=== PATIENT | female | born 1940 | race Caucasian/White ===

== ENCOUNTER 2017-12-08 08:55 | Outpatient (CLI) | payer MEDICARE, BC, OTHER | END 2017-12-08 08:56 | disposition home or self-care (01) | LOC: BICMAMMO 08:55 | PROVIDERS: ATTEND Obstetrics & Gynecology | DX: Z12.31 Encounter for screening mammogram for malignant neoplasm of breast (principal) | CPT/HCPCS: 77063; 77067 ==

== ENCOUNTER 2018-12-10 10:03 | Outpatient (CLI) | payer MEDICARE, BC, OTHER ==
--- NOTE | 2018-12-10 10:36 | MMO ---
Bilateral MAMMO Bilat Screen [facility]. CLINICAL HISTORY: Patient is 78 years old and is seen for screening. The patient has no family history of breast cancer. The patient has no personal history of cancer. The patient has a history of left Excisional Biopsy in 1987 - benign. VIEWS: The views performed were: bilateral craniocaudal with tomosynthesis and bilateral mediolateral oblique with tomosynthesis. FILMS COMPARED: The present examination has been compared to prior imaging studies performed at [facility] on 11/11/2013, 11/13/2014 and 11/25/2015, and at [facility] on 12/06/2016 and 12/08/2017. MAMMOGRAM FINDINGS: There are scattered fibroglandular densities. There are benign appearing calcifications seen in both breasts. There are also vascular calcifications. There are no suspicious masses, suspicious calcifications, or new areas of architectural distortion. IMPRESSION: THERE IS NO MAMMOGRAPHIC EVIDENCE OF MALIGNANCY. A ROUTINE FOLLOW-UP MAMMOGRAM IN 1 YEAR IS RECOMMENDED. THE RESULTS OF THIS EXAM WERE SENT TO THE PATIENT. ACR BI-RADS Category 2 - Benign finding MAMMOGRAPHY NOTE: 1. A negative mammogram report should not delay a biopsy if a dominant of clinically suspicious mass is present. 2. Approximately 10% to 15% of breast cancers are not detected by mammography. 3. Adenosis and dense breasts may obscure an underlying neoplasm.
== END 2018-12-10 10:04 | disposition home or self-care (01) ==
LOC: BICMAMMO 10:03
PROVIDERS: ATTEND Obstetrics & Gynecology
DX: Z12.31 Encounter for screening mammogram for malignant neoplasm of breast (principal)
CPT/HCPCS: 77063; 77067

== ENCOUNTER 2019-12-31 09:20 | Outpatient (CLI) | payer MEDICARE, BC, OTHER ==
--- NOTE | 2019-12-31 10:09 | MMO ---
Bilateral MAMMO Bilat Screen [facility]. CLINICAL HISTORY: Patient is 79 years old and is seen for screening. The patient has no family history of breast cancer. The patient has no personal history of cancer. The patient has a history of left Excisional Biopsy in 1987 - benign. VIEWS: The views performed were: bilateral craniocaudal with tomosynthesis and bilateral mediolateral oblique with tomosynthesis. FILMS COMPARED: The present examination has been compared to prior imaging studies performed at [facility] on 11/25/2015, and at [facility] on 12/06/2016, 12/08/2017 and 12/10/2018. This study has been interpreted with the assistance of computer-aided detection. MAMMOGRAM FINDINGS: There are scattered fibroglandular densities. Benign calcifications are noted bilaterally. There are no suspicious masses, suspicious calcifications, or new areas of architectural distortion. IMPRESSION: THERE IS NO MAMMOGRAPHIC EVIDENCE OF MALIGNANCY. A ROUTINE FOLLOW-UP MAMMOGRAM IN 1 YEAR IS RECOMMENDED. THE RESULTS OF THIS EXAM WERE SENT TO THE PATIENT. ACR BI-RADS Category 2 - Benign finding MAMMOGRAPHY NOTE: 1. A negative mammogram report should not delay a biopsy if a dominant of clinically suspicious mass is present. 2. Approximately 10% to 15% of breast cancers are not detected by mammography. 3. Adenosis and dense breasts may obscure an underlying neoplasm. Reported by: SAUL MILLER MD Electonically Signed: [id number]
== END 2019-12-31 09:21 | disposition home or self-care (01) ==
LOC: BICMAMMO 09:20
PROVIDERS: ATTEND Internal Medicine
DX: Z12.31 Encounter for screening mammogram for malignant neoplasm of breast (principal); Z91.89 Other specified personal risk factors, not elsewhere classified
CPT/HCPCS: 77063; 77067

== ENCOUNTER 2021-01-18 09:55 | Outpatient (CLI) | payer MEDICARE, BC | END 2021-01-18 09:56 | disposition home or self-care (01) | LOC: BICMAMMO 09:55 | PROVIDERS: ATTEND Internal Medicine | DX: Z12.31 Encounter for screening mammogram for malignant neoplasm of breast (principal); Z91.89 Other specified personal risk factors, not elsewhere classified | CPT/HCPCS: 77063; 77067 ==

== ENCOUNTER 2022-02-14 10:27 | Outpatient (CLI) | payer MEDICARE, BC | END 2022-02-14 10:28 | disposition home or self-care (01) | LOC: BICMAMMO 10:27 | PROVIDERS: ATTEND Internal Medicine | DX: Z12.31 Encounter for screening mammogram for malignant neoplasm of breast (principal); Z91.89 Other specified personal risk factors, not elsewhere classified | CPT/HCPCS: 77063; 77067 ==

== ENCOUNTER 2024-04-27 19:38 | Inpatient (IN) | payer MEDICARE, BC ==
[2024-04-27 21:44] VITALS: BMI 21.2
[2024-04-27] MEDS ORDERED: Acetaminophen 325 MG TAB PO PRN (21:45)
[2024-04-27] MEDS ORDERED: Ondansetron PF 4 MG/2 ML Vial IVP PRN ×2 (21:45→22:05)
[2024-04-27] MEDS ORDERED: Ondansetron ODT 4 MG TAB SL PRN (21:45)
[2024-04-27] MEDS ORDERED: Acetaminophen 650 MG Suppository PR PRN (22:05)
[2024-04-27] MEDS ORDERED: Ondansetron ODT 4 MG TAB PO PRN (22:05)
[2024-04-27 22:32] LABS: #Basophils Less than 0.03 10x3/uL (0.0-0.2); #Eosinphils Less than 0.03 10x3/uL (0.0-0.7); %Basophils 0.1 % (0.0-1.0); %Lymphocytes 5.8 % (21.0-51.0); %Monocytes 0.5 % (0.0-10.0); %Neutrophils 92.9 % (42.0-75.0); Hematocrit 22.4 % (36.0-47.0); Hemoglobin 7.2 g/dL (12.0-16.0); Mean Corpuscular HGB CONC 32.1 g/dL (32.0-36.0); Mean Corpuscular Hemoglobin 28.7 pg (27.0-31.0); Mean Corpuscular Volume 89.2 fL (78.0-98.0); Mean Platelet Volume 8.4 fL (7.4-10.4); Platelet Count 539 10x3/uL (130-400); RBC Distribution Width 14.5 % (11.5-14.5); Red Blood Cell (RBC) Count 2.51 mill/uL (4.20-5.40)
[2024-04-27 22:39] LABS: Chloride 96 mmol/L (98-107); Potassium 3.9 mmol/L (3.5-5.1); Sodium 131 mmol/L (136-145)
[2024-04-27 22:47] LABS: ALT (SGPT) 18 U/L (8-55); AST (SGOT) 20 U/L (5-34); Albumin 2.7 g/dL (3.4-4.8); Alkaline Phosphatase 73 U/L (40-110); Anion Gap 15 mmol/L (10-20); BUN (Urea Nitrogen) 8 mg/dL (9.8-20.1); Bilirubin, Total 0.2 mg/dL (0.2-1.2); Calc. Creatinine Clearance 74 mL/min (70-130); Calcium 8.9 mg/dL (7.8-10.44); Carbon Dioxide 26 mmol/L (23-31); Estimated GFR 93; Globulin 3.8 g/dL (2.4-3.5); Glucose 162 mg/dL (83-110); Protein, Total 6.5 g/dL (5.8-8.1)
[2024-04-27] MEDS: Acetaminophen 325 MG TAB PO SCH (23:01)
[2024-04-28] MEDS: Ipratropium/Albuterol 3 ML NEB NEB PRN (07:56)
[2024-04-28] MEDS ORDERED: Famotidine/PF 20 mg/2ml Vial SLOW IVP SCH (09:00)
[2024-04-28] MEDS: Doxycycline 100 MG CAP PO SCH (09:24)
[2024-04-28] MEDS: Famotidine 20 MG TAB PO SCH (09:24)
[2024-04-28] MEDS: cefTRIAXone\\ROCEPHIN 1 GM in Sodium Chloride 0.9% 100 ML IVPB SCH (09:25)
[2024-04-28] MEDS ORDERED: HYDROcodone/Acetaminophen 7.5/325 mg Tablet PO PRN ×2 (09:29)
[2024-04-28] MEDS: Acetaminophen 500 MG TAB PO PRN (11:10)
[2024-04-28 17:30] LABS: INR-International Normal Ratio 1.3; Prothrombin Time 16.5 sec (12.0-14.7)
[2024-04-28 17:31] LABS: PTT 30.3 sec (22.9-36.1)
[2024-04-29] MEDS ORDERED: Midazolam HCl 2 mg/2 ml Vial ONE (10:09)
[2024-04-29] MEDS ORDERED: fentaNYL 50 mcg/mL 1 mL Vial ONE (10:09)
[2024-04-29] MEDS ORDERED: Lidocaine 1% w/Epinephrine 1:100K 20 ML VIAL ONE (10:10)
[2024-04-29] MEDS ORDERED: Sodium Bicarbonate 2.5 MEQ/5 ML SDV ONE (10:10)
[2024-04-29] MEDS: Losartan 25 MG TAB PO SCH ×2 (12:34→20:16)
[2024-04-29 15:16] LABS: #Basophils 0.05 10x3/uL (0.0-0.2); %Basophils 0.4 % (0.0-1.0); %Eosinophils 0.7 % (0.0-10.0); %Lymphocytes 8.6 % (21.0-51.0); %Monocytes 5.8 % (0.0-10.0); %Neutrophils 83.8 % (42.0-75.0); Hemoglobin 6.9 g/dL (12.0-16.0); Mean Corpuscular HGB CONC 32.9 g/dL (32.0-36.0); Mean Corpuscular Hemoglobin 29.4 pg (27.0-31.0); Mean Corpuscular Volume 89.4 fL (78.0-98.0); Mean Platelet Volume 8.6 fL (7.4-10.4); Platelet Count 570 10x3/uL (130-400); RBC Distribution Width 14.4 % (11.5-14.5); Red Blood Cell (RBC) Count 2.35 mill/uL (4.20-5.40)
[2024-04-29] MEDS ORDERED: Iopamidol-370 76% 500 ML MDV (1 ML CHARGE) ONE (15:20)
[2024-04-29 15:30] LABS: Iron 11 ug/dL (50-170); Iron Binding Capacity, Total 285 mcg/dL (265-497)
[2024-04-29] MEDS ORDERED: Magnevist 469MG/ML 20 ML VIAL ONE (15:40)
[2024-04-29 15:59] LABS: Ferritin 51.03 ng/mL (10-291)
[2024-04-29] MEDS: Hydrochlorothiazide 25 MG TAB PO SCH (20:15)
[2024-04-29] MEDS: Ipratropium/Albuterol 3 ML NEB NEB PRN (20:19)
[2024-04-29] MEDS: Latanoprost 0.005% Ophth Soln 2.5 ml Bottle EA EYE SCH (20:46)
[2024-04-29] MEDS ORDERED: traMADol HCl 50 MG TAB PO PRN (21:51)
[2024-04-29] MEDS: Morphine 2 MG/ML VIAL SLOW IVP SCH (22:19)
[2024-04-30 06:55] LABS: #Basophils 0.05 10x3/uL (0.0-0.2); %Basophils 0.4 % (0.0-1.0); %Eosinophils 1.2 % (0.0-10.0); %Lymphocytes 10.6 % (21.0-51.0); %Monocytes 7.3 % (0.0-10.0); %Neutrophils 79.8 % (42.0-75.0); Hematocrit 20.7 % (36.0-47.0); Hemoglobin 6.7 g/dL (12.0-16.0); Mean Corpuscular HGB CONC 32.4 g/dL (32.0-36.0); Mean Corpuscular Hemoglobin 28.3 pg (27.0-31.0); Mean Corpuscular Volume 87.3 fL (78.0-98.0); Mean Platelet Volume 8.3 fL (7.4-10.4); Platelet Count 512 10x3/uL (130-400); RBC Distribution Width 14.3 % (11.5-14.5); Red Blood Cell (RBC) Count 2.37 mill/uL (4.20-5.40)
[2024-04-30 07:18] LABS: ALT (SGPT) 15 U/L (8-55); AST (SGOT) 21 U/L (5-34); Albumin 2.4 g/dL (3.4-4.8); Alkaline Phosphatase 64 U/L (40-110); Anion Gap 12 mmol/L (10-20); BUN (Urea Nitrogen) 8 mg/dL (9.8-20.1); Bilirubin, Total 0.3 mg/dL (0.2-1.2); Calc. Creatinine Clearance 80 mL/min (70-130); Calcium 8.2 mg/dL (7.8-10.44); Carbon Dioxide 24 mmol/L (23-31); Chloride 94 mmol/L (98-107); Estimated GFR 95; Globulin 2.9 g/dL (2.4-3.5); Glucose 100 mg/dL (83-110); Potassium 3.4 mmol/L (3.5-5.1); Protein, Total 5.3 g/dL (5.8-8.1); Sodium 127 mmol/L (136-145)
[2024-04-30] MEDS: Enoxaparin 40 MG (0.4 mL) SYRINGE SC SCH (08:14)
[2024-04-30] MEDS: Atorvastatin Calcium 10 MG TAB PO SCH (08:14)
[2024-04-30] MEDS ORDERED: Losartan 25 MG TAB PO SCH (09:00)
[2024-04-30] MEDS: HYDROcodone/Acetaminophen 5/325 mg Tablet PO PRN (16:20)
[2024-04-30] MEDS: Bisacodyl 5 MG TAB PO SCH (16:20)
[2024-04-30] MEDS: Sodium Ferric Gluconate 250 MG in Sodium Chloride 0.9% 250 ML 250 ML IVPB SCH (17:48)
[2024-04-30] MEDS: Senokot S 8.6-50 MG TAB PO SCH (20:18)
[2024-05-01 05:54] LABS: #Basophils 0.08 10x3/uL (0.0-0.2); %Basophils 0.4 % (0.0-1.0); %Eosinophils 1.7 % (0.0-10.0); %Lymphocytes 8.8 % (21.0-51.0); Hematocrit 26.7 % (36.0-47.0); Hemoglobin 8.8 g/dL (12.0-16.0); Mean Corpuscular Hemoglobin 28.5 pg (27.0-31.0); Mean Corpuscular Volume 86.4 fL (78.0-98.0); Mean Platelet Volume 8.5 fL (7.4-10.4); Platelet Count 579 10x3/uL (130-400); RBC Distribution Width 14.8 % (11.5-14.5); Red Blood Cell (RBC) Count 3.09 mill/uL (4.20-5.40)
[2024-05-01 06:11] LABS: ALT (SGPT) 17 U/L (8-55); AST (SGOT) 20 U/L (5-34); Albumin 2.5 g/dL (3.4-4.8); Alkaline Phosphatase 69 U/L (40-110); Anion Gap 11 mmol/L (10-20); BUN (Urea Nitrogen) 7 mg/dL (9.8-20.1); Bilirubin, Total 0.5 mg/dL (0.2-1.2); Calc. Creatinine Clearance 82 mL/min (70-130); Calcium 8.3 mg/dL (7.8-10.44); Carbon Dioxide 26 mmol/L (23-31); Chloride 92 mmol/L (98-107); Estimated GFR 95; Globulin 3.3 g/dL (2.4-3.5); Glucose 105 mg/dL (83-110); Potassium 3.6 mmol/L (3.5-5.1); Protein, Total 5.8 g/dL (5.8-8.1); Sodium 125 mmol/L (136-145)
[2024-05-01] MEDS ORDERED: Hydrochlorothiazide 25 MG TAB PO SCH (09:00)
[2024-05-01] MEDS: Ferrous Sulfate 325 MG TAB PO SCH (09:12)
[2024-05-01] MEDS: Pantoprazole DR 40 MG TAB PO SCH (09:12)
[2024-05-01] MEDS: Polyethylene Glycol 3350 17 GM Packet PO SCH (09:13)
[2024-05-01] MEDS ORDERED: Bisacodyl 10 MG SUPP PR PRN (10:22)
[2024-05-01] MEDS: Ipratropium/Albuterol 3 ML NEB NEB SCH (11:11)
[2024-05-01] MEDS: Morphine 2 MG/ML VIAL SLOW IVP PRN (11:20)
[2024-05-01] MEDS: Lactulose 20 GM (30 mL) UDCUP PO SCH (11:22)
[2024-05-01] MEDS: Bisacodyl 5 MG TAB PO SCH (16:03)
[2024-05-02 05:07] LABS: #Basophils 0.07 10x3/uL (0.0-0.2); %Basophils 0.4 % (0.0-1.0); %Eosinophils 1.9 % (0.0-10.0); %Lymphocytes 9.1 % (21.0-51.0); %Monocytes 8.5 % (0.0-10.0); %Neutrophils 79.2 % (42.0-75.0); Hemoglobin 8.2 g/dL (12.0-16.0); Mean Corpuscular HGB CONC 32.8 g/dL (32.0-36.0); Mean Corpuscular Hemoglobin 28.4 pg (27.0-31.0); Mean Corpuscular Volume 86.5 fL (78.0-98.0); Mean Platelet Volume 8.4 fL (7.4-10.4); Platelet Count 510 10x3/uL (130-400); RBC Distribution Width 14.8 % (11.5-14.5); Red Blood Cell (RBC) Count 2.89 mill/uL (4.20-5.40)
[2024-05-02 05:21] LABS: Anion Gap 9 mmol/L (10-20); BUN (Urea Nitrogen) 6 mg/dL (9.8-20.1); Calc. Creatinine Clearance 99 mL/min (70-130); Calcium 8.1 mg/dL (7.8-10.44); Carbon Dioxide 28 mmol/L (23-31); Chloride 92 mmol/L (98-107); Estimated GFR 97; Glucose 101 mg/dL (83-110); Potassium 3.8 mmol/L (3.5-5.1); Sodium 125 mmol/L (136-145)
[2024-05-02 09:28] VITALS: TEMP 97.9
[2024-05-02 12:43] VITALS: BP 118/65
== END 2024-05-02 12:57 | DRG 180 ==
LOC: 2NO 21:23 → MSONC 04-28 14:27
PROVIDERS: ADMIT Internal Medicine; ATTEND Internal Medicine
PROC: 0BBC3ZX Excision of Right Upper Lung Lobe, Percutaneous Approach, Diagnostic (ICD-10-PCS; principal; 2024-04-27)
PROC: 30233N1 Transfusion of Nonautologous Red Blood Cells into Peripheral Vein, Percutaneous Approach (ICD-10-PCS; 2024-04-30)
DX: C34.11 Malignant neoplasm of upper lobe, right bronchus or lung (principal); I26.93 Single subsegmental thrombotic pulmonary embolism without acute cor pulmonale; J18.9 Pneumonia, unspecified organism; J96.01 Acute respiratory failure with hypoxia; M84.48XA Pathological fracture, other site, initial encounter for fracture; C78.7 Secondary malignant neoplasm of liver and intrahepatic bile duct; C78.6 Secondary malignant neoplasm of retroperitoneum and peritoneum; E22.2 Syndrome of inappropriate secretion of antidiuretic hormone; D63.0 Anemia in neoplastic disease; K59.00 Constipation, unspecified; J44.9 Chronic obstructive pulmonary disease, unspecified; I10 Essential (primary) hypertension; E78.5 Hyperlipidemia, unspecified; R91.8 Other nonspecific abnormal finding of lung field; J43.9 Emphysema, unspecified; D50.9 Iron deficiency anemia, unspecified; Z88.5 Allergy status to narcotic agent; Z88.2 Allergy status to sulfonamides; Z91.040 Latex allergy status
CPT/HCPCS: 32408; 36415; 36430; 70553; 71045; 74177; 76376; 77012; 80048; 80053; 82274; 82607; 82728; 83540; 83550; 83935; 84300; 85025; 85046; 85610; 85730; 86850; 86900; 86901; 88305; 88333; 88334; 88341; 88342; 94640; 99152; 99153; A9579; J0696; J1650; J2250; J2272; J2916; J3010; J7050; J7620; P9016; Q9967

== ENCOUNTER 2024-05-06 13:34 | Inpatient (IN) | payer MEDICARE, BC ==
[2024-05-06 14:18] LABS: Bacteria/HPF None Seen HPF (None Seen); Bilirubin Negative (Negative); Blood, Urine Negative (Negative); CAUTI Indications for Culture Alt mental st,lethar; Clarity Clear (Clear); Glucose, Urine (Dipstick) Normal (Negative); Ketone, Urine Trace mg/dL (Negative); Leukocyte Negative Leu/uL (Negative); Nitrite Negative (Negative); Protein, Urine (Dipstick) 20 mg/dL (Neg-Trace); RBC/HPF 0-3 HPF (0-3); Specific Gravity, Urine 1.016 (1.002-1.036); Squamous Epithelial None Seen HPF (0-3); Urobilinogen Normal mg/dL (Less than 2); pH, Urine 6.5 (5.0-9.0)
[2024-05-06 14:19] LABS: Urine Culture Reflex No No
[2024-05-06 14:36] LABS: Amphetamine Not Detected (NotDetected); Barbiturates Screen Not Detected (NotDetected); Benzodiazepine Screen Not Detected (NotDetected); Cocaine Metabolite Screen Not Detected (NotDetected); Methadone Not Detected (NotDetected); Methamphetamine Not Detected (NotDetected); Opiate Screen Not Detected (NotDetected); Oxycodone Screen Not Detected (NotDetected); Phencyclidine (PCP) Not Detected (NotDetected); THC/Cannabinoid Screen Not Detected (NotDetected); Tricyclic Screen Not Detected (NotDetected)
[2024-05-06 14:39] LABS: #Basophils 0.05 10x3/uL (0.0-0.2); %Basophils 0.3 % (0.0-1.0); %Eosinophils 0.7 % (0.0-10.0); %Lymphocytes 6.8 % (21.0-51.0); %Monocytes 8.4 % (0.0-10.0); %Neutrophils 83.1 % (42.0-75.0); Hematocrit 28.1 % (36.0-47.0); Hemoglobin 9.9 g/dL (12.0-16.0); Mean Corpuscular HGB CONC 35.2 g/dL (32.0-36.0); Mean Corpuscular Hemoglobin 28.6 pg (27.0-31.0); Mean Corpuscular Volume 81.2 fL (78.0-98.0); Mean Platelet Volume 8.2 fL (7.4-10.4); Platelet Count 476 10x3/uL (130-400); Red Blood Cell (RBC) Count 3.46 mill/uL (4.20-5.40)
[2024-05-06 14:54] LABS: Acetaminophen Less than 10 mcg/mL (Less than 10); Alcohol Less than 10.0 mg/dL (Less than 10); Salicylate Less than 8.0 mg/dL (Less than 8.0)
[2024-05-06 14:57] LABS: Troponin I 0.024 ng/mL (< 0.028)
[2024-05-06 15:00] LABS: ALT (SGPT) 26 U/L (8-55); AST (SGOT) 29 U/L (5-34); Albumin 2.5 g/dL (3.4-4.8); Alkaline Phosphatase 78 U/L (40-110); Anion Gap 12 mmol/L (10-20); BUN (Urea Nitrogen) 11 mg/dL (9.8-20.1); Bilirubin, Total 0.5 mg/dL (0.2-1.2); Calc. Creatinine Clearance 0 mL/min (70-130); Calcium 8.4 mg/dL (7.8-10.44); Carbon Dioxide 29 mmol/L (23-31); Chloride 76 mmol/L (98-107); Estimated GFR 95; Globulin 3.1 g/dL (2.4-3.5); Glucose 102 mg/dL (83-110); Potassium 3.7 mmol/L (3.5-5.1); Protein, Total 5.6 g/dL (5.8-8.1); Sodium 113 mmol/L (136-145)
[2024-05-06] MEDS ORDERED: Ipratropium/Albuterol 3 ML NEB ONE (15:07)
[2024-05-06 15:09] LABS: Magnesium 1.7 mg/dL (1.6-2.6)
[2024-05-06] MEDS ORDERED: Ipratropium/Albuterol 3 ML NEB NEB PRN (17:14)
[2024-05-06] MEDS ORDERED: Acetaminophen 650 MG Suppository PR PRN (17:31)
[2024-05-06] MEDS ORDERED: Ondansetron ODT 4 MG TAB PO PRN (17:31)
[2024-05-06] MEDS ORDERED: Ondansetron PF 4 MG/2 ML Vial IVP PRN (17:31)
[2024-05-06] MEDS ORDERED: Polyethylene Glycol 3350 17 GM Packet PO PRN (17:35)
[2024-05-06] MEDS: Sodium Chloride 256 MEQ in Sterile Water 936 ML IV SCH (17:43)
[2024-05-06] MEDS: Senokot S 8.6-50 MG TAB PO SCH (22:16)
[2024-05-06] MEDS: Acetaminophen 325 MG TAB PO SCH (22:16)
[2024-05-06] MEDS: Famotidine 20 MG TAB PO SCH (22:16)
[2024-05-06] MEDS: Latanoprost 0.005% Ophth Soln 2.5 ml Bottle EA EYE SCH (22:16)
[2024-05-06 23:06] LABS: Anion Gap 10 mmol/L (10-20); BUN (Urea Nitrogen) 13 mg/dL (9.8-20.1); Calc. Creatinine Clearance 72 mL/min (70-130); Calcium 7.9 mg/dL (7.8-10.44); Carbon Dioxide 30 mmol/L (23-31); Chloride 82 mmol/L (98-107); Estimated GFR 89; Glucose 99 mg/dL (83-110); Potassium 3.4 mmol/L (3.5-5.1); Sodium 119 mmol/L (136-145)
[2024-05-07] MEDS: Sodium Chloride 256 MEQ in Sterile Water 936 ML IV SCH (02:05)
[2024-05-07 04:43] LABS: #Basophils 0.05 10x3/uL (0.0-0.2); %Basophils 0.3 % (0.0-1.0); %Eosinophils 1.6 % (0.0-10.0); %Lymphocytes 5.8 % (21.0-51.0); %Monocytes 9.1 % (0.0-10.0); %Neutrophils 82.4 % (42.0-75.0); Hematocrit 27.6 % (36.0-47.0); Hemoglobin 9.1 g/dL (12.0-16.0); Mean Corpuscular Hemoglobin 28.2 pg (27.0-31.0); Mean Corpuscular Volume 85.4 fL (78.0-98.0); Mean Platelet Volume 8.4 fL (7.4-10.4); Platelet Count 473 10x3/uL (130-400); RBC Distribution Width 14.3 % (11.5-14.5); Red Blood Cell (RBC) Count 3.23 mill/uL (4.20-5.40)
[2024-05-07 06:04] LABS: Anion Gap 11 mmol/L (10-20); BUN (Urea Nitrogen) 11 mg/dL (9.8-20.1); Calc. Creatinine Clearance 84 mL/min (70-130); Calcium 8.1 mg/dL (7.8-10.44); Carbon Dioxide 29 mmol/L (23-31); Chloride 85 mmol/L (98-107); Estimated GFR 93; Glucose 85 mg/dL (83-110); Potassium 3.2 mmol/L (3.5-5.1); Sodium 122 mmol/L (136-145)
[2024-05-07 07:54] LABS: Anion Gap 9 mmol/L (10-20); BUN (Urea Nitrogen) 9 mg/dL (9.8-20.1); Calc. Creatinine Clearance 102 mL/min (70-130); Carbon Dioxide 29 mmol/L (23-31); Chloride 87 mmol/L (98-107); Estimated GFR 97; Glucose 101 mg/dL (83-110); Potassium 3.3 mmol/L (3.5-5.1); Sodium 122 mmol/L (136-145)
[2024-05-07] MEDS: Atorvastatin Calcium 10 MG TAB PO SCH (10:13)
[2024-05-07] MEDS: Potassium Chloride 20 MEQ TAB PO SCH ×2 (10:13→13:47)
[2024-05-07] MEDS: Ferrous Sulfate 325 MG TAB PO SCH (10:13)
[2024-05-07 12:49] LABS: Anion Gap 9 mmol/L (10-20); BUN (Urea Nitrogen) 12 mg/dL (9.8-20.1); Calc. Creatinine Clearance 89 mL/min (70-130); Calcium 8.1 mg/dL (7.8-10.44); Carbon Dioxide 31 mmol/L (23-31); Chloride 87 mmol/L (98-107); Estimated GFR 94; Glucose 140 mg/dL (83-110); Potassium 3.5 mmol/L (3.5-5.1); Sodium 123 mmol/L (136-145)
[2024-05-07 18:55] LABS: Anion Gap 12 mmol/L (10-20); BUN (Urea Nitrogen) 12 mg/dL (9.8-20.1); Calc. Creatinine Clearance 89 mL/min (70-130); Calcium 8.6 mg/dL (7.8-10.44); Carbon Dioxide 28 mmol/L (23-31); Chloride 88 mmol/L (98-107); Estimated GFR 94; Glucose 133 mg/dL (83-110); Potassium 4.4 mmol/L (3.5-5.1); Sodium 124 mmol/L (136-145)
[2024-05-07] MEDS: Losartan 25 MG TAB PO SCH (20:43)
[2024-05-08 04:48] LABS: Hematocrit 30.8 % (36.0-47.0); Hemoglobin 9.8 g/dL (12.0-16.0); Mean Corpuscular HGB CONC 31.8 g/dL (32.0-36.0); Mean Corpuscular Hemoglobin 28.7 pg (27.0-31.0); Mean Corpuscular Volume 90.3 fL (78.0-98.0); Mean Platelet Volume 8.6 fL (7.4-10.4); Platelet Count 524 10x3/uL (130-400); RBC Distribution Width 14.6 % (11.5-14.5); Red Blood Cell (RBC) Count 3.41 mill/uL (4.20-5.40)
[2024-05-08 05:02] LABS: Anion Gap 13 mmol/L (10-20); BUN (Urea Nitrogen) 10 mg/dL (9.8-20.1); Calc. Creatinine Clearance 102 mL/min (70-130); Calcium 8.7 mg/dL (7.8-10.44); Carbon Dioxide 27 mmol/L (23-31); Chloride 90 mmol/L (98-107); Estimated GFR 97; Glucose 134 mg/dL (83-110); Potassium 4.8 mmol/L (3.5-5.1); Sodium 125 mmol/L (136-145)
[2024-05-08] MEDS: Sodium Chloride 256 MEQ in Sterile Water 936 ML IV SCH ×2 (08:07→17:33)
[2024-05-08 13:24] LABS: Anion Gap 11 mmol/L (10-20); BUN (Urea Nitrogen) 7 mg/dL (9.8-20.1); Calc. Creatinine Clearance 91 mL/min (70-130); Calcium 8.7 mg/dL (7.8-10.44); Carbon Dioxide 32 mmol/L (23-31); Chloride 88 mmol/L (98-107); Estimated GFR 95; Glucose 139 mg/dL (83-110); Potassium 4.7 mmol/L (3.5-5.1); Sodium 126 mmol/L (136-145)
[2024-05-08 16:13] LABS: Actual Bicarbonate (HCO3a) 31.7 mEq/L (22-28); Base Excess (BEa) 2.1 mEq/L (-2.0 to +3.0); Calcium, Ionized (arterial) 1.22 mmol/L (1.12-1.30); Carboxyhemoglobin (COHb) 1.8 gm% (0.0-3.0); Hematocrit-ABG 31 % (36.0-47.0); Hemoglobin (Hb) 10.4 g/dL (12.0-16.0); O2 Tension (PaO2), arterial 67.7 mmHg (> 60.0); Potassium - ABG Lab 4.35 mmol/L (3.70-5.30)
[2024-05-08 16:17] LABS: ALV-art Gradient 29.065 mmHg (0-20); CO2 Tension 82.3 mmHg (35.0-45.0); Puncture Site Left Radial artery; pH, Arterial 7.203 (7.35-7.45)
[2024-05-08] MEDS: cefTRIAXone Sodium 1 MG in Syringe 0 ML IVPB SCH (17:20)
[2024-05-08] MEDS: cefTRIAXone\\ROCEPHIN 1 GM in Sodium Chloride 0.9% 100 ML IVPB SCH (17:33)
[2024-05-08] MEDS: methylPREDNISolone Sod Succ 40 MG VIAL IVP SCH (17:34)
[2024-05-08] MEDS: Ipratropium/Albuterol 3 ML NEB NEB SCH (18:47)
[2024-05-08 22:59] LABS: Anion Gap 14 mmol/L (10-20); BUN (Urea Nitrogen) 7 mg/dL (9.8-20.1); Calc. Creatinine Clearance 99 mL/min (70-130); Calcium 8.6 mg/dL (7.8-10.44); Carbon Dioxide 26 mmol/L (23-31); Chloride 93 mmol/L (98-107); Estimated GFR 97; Glucose 131 mg/dL (83-110); Potassium 5.1 mmol/L (3.5-5.1); Sodium 128 mmol/L (136-145)
[2024-05-09] MEDS: methylPREDNISolone Sod Succ 40 MG VIAL IVP SCH ×2 (00:38→17:49)
[2024-05-09] MEDS: Enoxaparin 40 MG (0.4 mL) SYRINGE SC SCH (08:14)
[2024-05-09 08:16] LABS: #Basophils Less than 0.03 10x3/uL (0.0-0.2); #Eosinophils Less than 0.03 10x3/uL (0.0-0.7); %Basophils 0.1 % (0.0-1.0); %Lymphocytes 2.8 % (21.0-51.0); %Monocytes 0.6 % (0.0-10.0); %Neutrophils 95.7 % (42.0-75.0); Hematocrit 31.6 % (36.0-47.0); Hemoglobin 9.9 g/dL (12.0-16.0); Mean Corpuscular HGB CONC 31.3 g/dL (32.0-36.0); Mean Corpuscular Hemoglobin 28.3 pg (27.0-31.0); Mean Corpuscular Volume 90.3 fL (78.0-98.0); Mean Platelet Volume 8.6 fL (7.4-10.4); Platelet Count 413 10x3/uL (130-400)
[2024-05-09 08:41] LABS: Anion Gap 12 mmol/L (10-20); BUN (Urea Nitrogen) 10 mg/dL (9.8-20.1); Calc. Creatinine Clearance 97 mL/min (70-130); Calcium 8.7 mg/dL (7.8-10.44); Carbon Dioxide 30 mmol/L (23-31); Chloride 94 mmol/L (98-107); Estimated GFR 96; Glucose 142 mg/dL (83-110); Potassium 4.5 mmol/L (3.5-5.1); Sodium 131 mmol/L (136-145)
[2024-05-09 08:45] LABS: ALT (SGPT) 27 U/L (8-55); AST (SGOT) 23 U/L (5-34); Albumin 2.4 g/dL (3.4-4.8); Alkaline Phosphatase 83 U/L (40-110); Anion Gap 11 mmol/L (10-20); BUN (Urea Nitrogen) 10 mg/dL (9.8-20.1); Bilirubin, Total 0.2 mg/dL (0.2-1.2); Calc. Creatinine Clearance 97 mL/min (70-130); Calcium 8.7 mg/dL (7.8-10.44); Carbon Dioxide 31 mmol/L (23-31); Chloride 94 mmol/L (98-107); Estimated GFR 96; Globulin 3.3 g/dL (2.4-3.5); Glucose 144 mg/dL (83-110); Potassium 4.6 mmol/L (3.5-5.1); Protein, Total 5.7 g/dL (5.8-8.1); Sodium 131 mmol/L (136-145)
[2024-05-09 09:30] LABS: Actual Bicarbonate (HCO3v) 24.9 mEq/L (22-28); Calcium, Ionized (venous) 1.02 mmol/L (1.16-1.32); Chloride (VBG) 93 mmol/L (98-106); Hematocrit-VBG 36 % (36.0-47.0); Hemoglobin (Hb) 12.1 g/dL (11.7-16.1); Potassium (VBG) 5.06 mmol/L (3.70-5.30); pH (venous) 7.445 (7.32-7.43)
[2024-05-09] MEDS: Metoprolol Tartrate 5 MG (5 mL) VIAL IVP SCH (20:22)
[2024-05-10 04:33] LABS: #Basophils 0.05 10x3/uL (0.0-0.2); %Basophils 0.3 % (0.0-1.0); %Eosinophils 0.7 % (0.0-10.0); %Monocytes 7.6 % (0.0-10.0); %Neutrophils 82.5 % (42.0-75.0); Hematocrit 28.2 % (36.0-47.0); Hemoglobin 8.7 g/dL (12.0-16.0); Mean Corpuscular HGB CONC 30.9 g/dL (32.0-36.0); Mean Corpuscular Hemoglobin 28.4 pg (27.0-31.0); Mean Corpuscular Volume 92.2 fL (78.0-98.0); Mean Platelet Volume 8.5 fL (7.4-10.4); Platelet Count 410 10x3/uL (130-400); RBC Distribution Width 14.7 % (11.5-14.5); Red Blood Cell (RBC) Count 3.06 mill/uL (4.20-5.40)
[2024-05-10 04:47] LABS: Anion Gap 9 mmol/L (10-20); BUN (Urea Nitrogen) 13 mg/dL (9.8-20.1); Calc. Creatinine Clearance 91 mL/min (70-130); Calcium 8.2 mg/dL (7.8-10.44); Carbon Dioxide 31 mmol/L (23-31); Chloride 92 mmol/L (98-107); Estimated GFR 94; Glucose 106 mg/dL (83-110); Potassium 3.9 mmol/L (3.5-5.1); Sodium 128 mmol/L (136-145)
[2024-05-10] MEDS: Sodium Chloride 256 MEQ in Sterile Water 936 ML IV SCH ×2 (09:17→21:00)
[2024-05-10 18:32] LABS: Anion Gap 11 mmol/L (10-20); BUN (Urea Nitrogen) 11 mg/dL (9.8-20.1); Calc. Creatinine Clearance 81 mL/min (70-130); Carbon Dioxide 31 mmol/L (23-31); Chloride 89 mmol/L (98-107); Estimated GFR 91; Glucose 158 mg/dL (83-110); Potassium 4.1 mmol/L (3.5-5.1); Sodium 127 mmol/L (136-145)
[2024-05-11 04:30] LABS: Anion Gap 12 mmol/L (10-20); BUN (Urea Nitrogen) 7 mg/dL (9.8-20.1); Calc. Creatinine Clearance 99 mL/min (70-130); Carbon Dioxide 31 mmol/L (23-31); Chloride 91 mmol/L (98-107); Estimated GFR 96; Glucose 138 mg/dL (83-110); Potassium 3.8 mmol/L (3.5-5.1); Sodium 130 mmol/L (136-145)
[2024-05-11 05:58] LABS: #Basophils Less than 0.03 10x3/uL (0.0-0.2); #Eosinophils Less than 0.03 10x3/uL (0.0-0.7); %Basophils 0.1 % (0.0-1.0); %Lymphocytes 6.1 % (21.0-51.0); %Monocytes 4.8 % (0.0-10.0); %Neutrophils 88.3 % (42.0-75.0); Hematocrit 28.8 % (36.0-47.0); Hemoglobin 9.2 g/dL (12.0-16.0); Mean Corpuscular HGB CONC 31.9 g/dL (32.0-36.0); Mean Corpuscular Hemoglobin 27.4 pg (27.0-31.0); Mean Corpuscular Volume 85.7 fL (78.0-98.0); Mean Platelet Volume 8.7 fL (7.4-10.4); Platelet Count 421 10x3/uL (130-400); RBC Distribution Width 14.8 % (11.5-14.5); Red Blood Cell (RBC) Count 3.36 mill/uL (4.20-5.40)
[2024-05-11 06:11] LABS: Anion Gap 10 mmol/L (10-20); BUN (Urea Nitrogen) 6 mg/dL (9.8-20.1); Calc. Creatinine Clearance 118 mL/min (70-130); Calcium 8.1 mg/dL (7.8-10.44); Carbon Dioxide 35 mmol/L (23-31); Chloride 91 mmol/L (98-107); Estimated GFR 99; Glucose 122 mg/dL (83-110); Potassium 3.8 mmol/L (3.5-5.1); Sodium 132 mmol/L (136-145)
[2024-05-11] MEDS: Pantoprazole DR 40 MG TAB PO SCH (16:07)
[2024-05-11] MEDS: Calcium Carbonate 500 MG ChewTAB PO PRN (16:07)
[2024-05-11] MEDS: methylPREDNISolone Sod Succ 40 MG VIAL IVP SCH (17:18)
[2024-05-12 03:59] LABS: Anion Gap 10 mmol/L (10-20); BUN (Urea Nitrogen) 6 mg/dL (9.8-20.1); Calc. Creatinine Clearance 118 mL/min (70-130); Carbon Dioxide 33 mmol/L (23-31); Chloride 93 mmol/L (98-107); Estimated GFR 99; Glucose 120 mg/dL (83-110); Potassium 3.7 mmol/L (3.5-5.1); Sodium 132 mmol/L (136-145)
[2024-05-12] MEDS: Pantoprazole DR 40 MG TAB PO SCH (08:31)
[2024-05-12] MEDS: Sodium Chloride 1 GM TAB PO SCH (08:32)
[2024-05-13 05:49] LABS: Anion Gap 13 mmol/L (10-20); BUN (Urea Nitrogen) 7 mg/dL (9.8-20.1); Calc. Creatinine Clearance 104 mL/min (70-130); Calcium 8.4 mg/dL (7.8-10.44); Carbon Dioxide 33 mmol/L (23-31); Chloride 91 mmol/L (98-107); Estimated GFR 96; Glucose 209 mg/dL (83-110); Potassium 3.4 mmol/L (3.5-5.1); Sodium 134 mmol/L (136-145)
[2024-05-13] MEDS: predniSONE 20 MG TAB PO SCH (08:57)
[2024-05-14 11:16] LABS: Anion Gap 6 mmol/L (10-20); BUN (Urea Nitrogen) 12 mg/dL (9.8-20.1); Calc. Creatinine Clearance 121 mL/min (70-130); Calcium 8.4 mg/dL (7.8-10.44); Carbon Dioxide 39 mmol/L (23-31); Chloride 99 mmol/L (98-107); Estimated GFR 99; Glucose 113 mg/dL (83-110); Potassium 3.8 mmol/L (3.5-5.1); Sodium 140 mmol/L (136-145)
[2024-05-15] LABS: Actual Bicarbonate (HCO3a) 34.8 mEq/L (22-28); Base Excess (BEa) 8.8 mEq/L (-2.0 to +3.0); CO2 Tension 56.1 mmHg (35.0-45.0); Calcium, Ionized (arterial) 1.15 mmol/L (1.12-1.30); Carboxyhemoglobin (COHb) 1.4 gm% (0.0-3.0); Hematocrit-ABG 28 % (36.0-47.0); Hemoglobin (Hb) 9.4 g/dL (12.0-16.0); O2 Tension (PaO2), arterial 117.4 mmHg (> 60.0); Puncture Site Left Radial artery
[2024-05-15 00:01] LABS: ALV-art Gradient 26.375 mmHg (0-20)
[2024-05-15] MEDS: Metoprolol Tartrate 5 MG (5 mL) VIAL ONE (08:35)
[2024-05-15 08:42] LABS: Actual Bicarbonate (HCO3a) 36.6 mEq/L (22-28); Base Excess (BEa) 8.2 mEq/L (-2.0 to +3.0); Calcium, Ionized (arterial) 1.15 mmol/L (1.12-1.30); Carboxyhemoglobin (COHb) 1.5 gm% (0.0-3.0); Hematocrit-ABG 30 % (36.0-47.0); Hemoglobin (Hb) 10.3 g/dL (12.0-16.0); O2 Tension (PaO2), arterial 60.2 mmHg (> 60.0); Potassium - ABG Lab 3.48 mmol/L (3.70-5.30); pH, Arterial 7.303 (7.35-7.45)
[2024-05-15 08:47] LABS: CO2 Tension 75.6 mmHg (35.0-45.0); Puncture Site Right Radial artery
[2024-05-15] MEDS ORDERED: Promethazine HCl 12.5 MG in Sodium Chloride 0.9% 50 ML IVPB PRN (09:04)
[2024-05-15] MEDS ORDERED: Lorazepam 2 MG/ML VIAL SLOW IVP PRN (09:06)
[2024-05-15] MEDS ORDERED: hydrALAZINE 20 MG/ML VIAL SLOW IVP PRN (09:41)
[2024-05-15] MEDS ORDERED: niCARdipine 25 MG in Sodium Chloride 0.9% 250 ML 250 ML IVPB SCH (09:45)
[2024-05-15] MEDS: Diltiazem HCl/D5W 125 MG in Premix 1 BAG IVPB SCH (10:21)
[2024-05-15] MEDS: Furosemide 20 MG (2 mL) VIAL SLOW IVP SCH (11:31)
[2024-05-15] MEDS: Magnesium 2 GM/50 ML(in water) 2 GM in Premix 1 BAG IVPB SCH (11:32)
[2024-05-15] MEDS: acetaZOLAMIDE Sodium 500 mg Vial IVP SCH (15:28)
[2024-05-15 16:08] LABS: #Basophils Less than 0.03 10x3/uL (0.0-0.2); #Eosinophils Less than 0.03 10x3/uL (0.0-0.7); %Basophils 0.1 % (0.0-1.0); %Eosinophils 0.1 % (0.0-10.0); %Neutrophils 95.2 % (42.0-75.0); Hematocrit 32.2 % (36.0-47.0); Hemoglobin 9.5 g/dL (12.0-16.0); Mean Corpuscular HGB CONC 29.5 g/dL (32.0-36.0); Mean Corpuscular Hemoglobin 27.7 pg (27.0-31.0); Mean Corpuscular Volume 93.9 fL (78.0-98.0); Mean Platelet Volume 8.6 fL (7.4-10.4); Platelet Count 376 10x3/uL (130-400); RBC Distribution Width 15.6 % (11.5-14.5); Red Blood Cell (RBC) Count 3.43 mill/uL (4.20-5.40)
[2024-05-15 16:19] VITALS: BP 163/76
[2024-05-15 16:19] LABS: Phosphorus 2.7 mg/dL (2.3-4.7)
[2024-05-15 16:21] LABS: Anion Gap 11 mmol/L (10-20); BUN (Urea Nitrogen) 12 mg/dL (9.8-20.1); Calc. Creatinine Clearance 121 mL/min (70-130); Calcium 8.3 mg/dL (7.8-10.44); Carbon Dioxide 36 mmol/L (23-31); Chloride 95 mmol/L (98-107); Estimated GFR 98; Glucose 141 mg/dL (83-110); Magnesium 1.8 mg/dL (1.6-2.6); Potassium 3.5 mmol/L (3.5-5.1); Sodium 138 mmol/L (136-145)
[2024-05-15 17:07] LABS: Actual Bicarbonate (HCO3a) 46.7 mEq/L (22-28); Base Excess (BEa) 13.4 mEq/L (-2.0 to +3.0); Calcium, Ionized (arterial) 1.18 mmol/L (1.12-1.30); O2 Tension (PaO2), arterial 90.2 mmHg (> 60.0); pH, Arterial 7.232 (7.35-7.45)
[2024-05-15 17:09] LABS: CO2 Tension 113.5 mmHg (35.0-45.0)
[2024-05-16 04:42] LABS: #Basophils 0.03 10x3/uL (0.0-0.2); %Basophils 0.2 % (0.0-1.0); %Eosinophils 0.2 % (0.0-10.0); %Lymphocytes 7.8 % (21.0-51.0); %Monocytes 6.4 % (0.0-10.0); %Neutrophils 84.8 % (42.0-75.0); Hematocrit 33.1 % (36.0-47.0); Hemoglobin 9.6 g/dL (12.0-16.0); Mean Corpuscular Hemoglobin 28.1 pg (27.0-31.0); Mean Corpuscular Volume 96.8 fL (78.0-98.0); Mean Platelet Volume 8.9 fL (7.4-10.4); Platelet Count 327 10x3/uL (130-400); RBC Distribution Width 15.4 % (11.5-14.5); Red Blood Cell (RBC) Count 3.42 mill/uL (4.20-5.40)
[2024-05-16 04:52] LABS: Anion Gap 17 mmol/L (10-20); BUN (Urea Nitrogen) 12 mg/dL (9.8-20.1); Calc. Creatinine Clearance 121 mL/min (70-130); Calcium 8.2 mg/dL (7.8-10.44); Carbon Dioxide 27 mmol/L (23-31); Chloride 99 mmol/L (98-107); Estimated GFR 98; Glucose 73 mg/dL (83-110); Potassium 3.6 mmol/L (3.5-5.1); Sodium 139 mmol/L (136-145)
[2024-05-16] MEDS ORDERED: acetaZOLAMIDE Sodium 500 mg Vial IVP SCH (09:45)
[2024-05-16] MEDS: Metoprolol Tartrate 25 MG TAB PO SCH (10:10)
[2024-05-16] MEDS: acetaZOLAMIDE Sodium 500 MG in Sodium Chloride 0.9% 50 ML IVPB SCH (10:56)
[2024-05-17 15:40] LABS: Anion Gap 10 mmol/L (10-20); BUN (Urea Nitrogen) 13 mg/dL (9.8-20.1); Calc. Creatinine Clearance 88 mL/min (70-130); Carbon Dioxide 27 mmol/L (23-31); Chloride 103 mmol/L (98-107); Estimated GFR 92; Glucose 195 mg/dL (83-110); Potassium 2.6 mmol/L (3.5-5.1); Sodium 137 mmol/L (136-145)
[2024-05-17] MEDS ORDERED: Electrolyte Replacement Protocol 1 EACH FS PRN (16:00)
[2024-05-17] MEDS: Potassium Chloride 20 MEQ in Premix 1 BAG IVPB SCH (17:15)
[2024-05-18] MEDS: Potassium Chloride 20 MEQ in Premix 1 BAG IVPB SCH (00:45)
[2024-05-18 03:32] LABS: #Basophils Less than 0.03 10x3/uL (0.0-0.2); %Basophils 0.1 % (0.0-1.0); %Eosinophils 0.2 % (0.0-10.0); %Lymphocytes 6.6 % (21.0-51.0); %Monocytes 6.7 % (0.0-10.0); %Neutrophils 85.9 % (42.0-75.0); Hematocrit 28.6 % (36.0-47.0); Hemoglobin 8.7 g/dL (12.0-16.0); Mean Corpuscular HGB CONC 30.4 g/dL (32.0-36.0); Mean Corpuscular Hemoglobin 27.3 pg (27.0-31.0); Mean Corpuscular Volume 89.7 fL (78.0-98.0); Mean Platelet Volume 9.3 fL (7.4-10.4); Platelet Count 315 10x3/uL (130-400); RBC Distribution Width 15.3 % (11.5-14.5); Red Blood Cell (RBC) Count 3.19 mill/uL (4.20-5.40)
[2024-05-18 04:14] LABS: Anion Gap 9 mmol/L (10-20); BUN (Urea Nitrogen) 13 mg/dL (9.8-20.1); Calc. Creatinine Clearance 113 mL/min (70-130); Carbon Dioxide 29 mmol/L (23-31); Chloride 105 mmol/L (98-107); Estimated GFR 98; Glucose 100 mg/dL (83-110); Magnesium 1.8 mg/dL (1.6-2.6); Potassium 3.3 mmol/L (3.5-5.1); Sodium 140 mmol/L (136-145)
[2024-05-18] MEDS: Magnesium 2 GM/50 ML(in water) 2 GM in Premix 1 BAG IVPB SCH (09:51)
[2024-05-18] MEDS: Potassium Chloride 20 MEQ TAB PO SCH (09:51)
[2024-05-18] MEDS: Sterile Water 10 ML VIAL IVP SCH (17:40)
[2024-05-18] MEDS: acetaZOLAMIDE Sodium 500 mg Vial IVP SCH (17:40)
[2024-05-19 04:59] LABS: #Basophils Less than 0.03 10x3/uL (0.0-0.2); %Basophils 0.1 % (0.0-1.0); %Eosinophils 0.3 % (0.0-10.0); %Lymphocytes 6.3 % (21.0-51.0); %Monocytes 5.7 % (0.0-10.0); %Neutrophils 87.1 % (42.0-75.0); Hematocrit 29.2 % (36.0-47.0); Hemoglobin 8.8 g/dL (12.0-16.0); Mean Corpuscular HGB CONC 30.1 g/dL (32.0-36.0); Mean Corpuscular Hemoglobin 27.9 pg (27.0-31.0); Mean Corpuscular Volume 92.7 fL (78.0-98.0); Mean Platelet Volume 9.7 fL (7.4-10.4); Platelet Count 335 10x3/uL (130-400); Red Blood Cell (RBC) Count 3.15 mill/uL (4.20-5.40)
[2024-05-19 05:04] LABS: Anion Gap 8 mmol/L (10-20); BUN (Urea Nitrogen) 15 mg/dL (9.8-20.1); Calc. Creatinine Clearance 98 mL/min (70-130); Calcium 8.4 mg/dL (7.8-10.44); Carbon Dioxide 32 mmol/L (23-31); Chloride 105 mmol/L (98-107); Estimated GFR 95; Glucose 93 mg/dL (83-110); Potassium 3.9 mmol/L (3.5-5.1); Sodium 141 mmol/L (136-145)
[2024-05-20 02:54] LABS: #Basophils 0.03 10x3/uL (0.0-0.2); %Basophils 0.2 % (0.0-1.0); %Eosinophils 0.6 % (0.0-10.0); %Lymphocytes 5.5 % (21.0-51.0); %Neutrophils 87.2 % (42.0-75.0); Hematocrit 30.6 % (36.0-47.0); Hemoglobin 8.8 g/dL (12.0-16.0); Mean Corpuscular HGB CONC 28.8 g/dL (32.0-36.0); Mean Corpuscular Hemoglobin 27.3 pg (27.0-31.0); Mean Platelet Volume 9.1 fL (7.4-10.4); Platelet Count 310 10x3/uL (130-400); RBC Distribution Width 15.8 % (11.5-14.5); Red Blood Cell (RBC) Count 3.22 mill/uL (4.20-5.40)
[2024-05-20 03:18] LABS: Hypochromia MODERATE=16-30 cells HPF (0-5); Platelet Adequacy Comment Platelets Normal
[2024-05-20 03:39] LABS: Anion Gap 9 mmol/L (10-20); BUN (Urea Nitrogen) 11 mg/dL (9.8-20.1); Calc. Creatinine Clearance 120 mL/min (70-130); Calcium 8.2 mg/dL (7.8-10.44); Carbon Dioxide 34 mmol/L (23-31); Chloride 102 mmol/L (98-107); Estimated GFR 99; Glucose 100 mg/dL (83-110); Potassium 3.7 mmol/L (3.5-5.1); Sodium 141 mmol/L (136-145)
[2024-05-21 04:22] LABS: #Basophils 0.03 10x3/uL (0.0-0.2); %Basophils 0.1 % (0.0-1.0); %Eosinophils 0.8 % (0.0-10.0); %Lymphocytes 4.5 % (21.0-51.0); %Monocytes 4.7 % (0.0-10.0); %Neutrophils 89.2 % (42.0-75.0); Hematocrit 31.7 % (36.0-47.0); Hemoglobin 9.4 g/dL (12.0-16.0); Mean Corpuscular HGB CONC 29.7 g/dL (32.0-36.0); Mean Corpuscular Hemoglobin 27.9 pg (27.0-31.0); Mean Corpuscular Volume 94.1 fL (78.0-98.0); Platelet Count 341 10x3/uL (130-400); Red Blood Cell (RBC) Count 3.37 mill/uL (4.20-5.40)
[2024-05-21] MEDS: dilTIAZem 25 MG/5 ML VIAL SLOW IVP SCH (16:08)
[2024-05-21] MEDS ORDERED: dilTIAZem 125 MG in Sodium Chloride 0.9% 100 ML IVPB SCH (17:00)
[2024-05-22] MEDS: Diltiazem HCl/D5W 125 MG in Premix 1 BAG IVPB SCH (00:20)
[2024-05-22 04:07] VITALS: TEMP 98
[2024-05-22] MEDS: Morphine 2 MG/ML VIAL SLOW IVP PRN (16:40)
[2024-05-23] MEDS: Lorazepam 2 MG/ML VIAL SLOW IVP SCH (14:12)
== END 2024-05-23 14:25 | disposition hospice, inpatient (51) | DRG 643 ==
LOC: ERS 13:34 → ERHOLD 16:01 → 2NO 21:29 → IMCU/EMU 05-08 18:21 → MSONC 05-12 22:22 → 2NO 05-15 09:00 → IMCU/EMU 05-15 18:46
PROVIDERS: ADMIT Internal Medicine; ATTEND Family Medicine
PROC: 4A133R1 Monitoring of Arterial Saturation, Peripheral, Percutaneous Approach (ICD-10-PCS; principal; 2024-05-08)
PROC: 5A09357 Assistance with Respiratory Ventilation, Less than 24 Consecutive Hours, Continuous Positive Airway Pressure (ICD-10-PCS; 2024-05-08)
DX: E22.2 Syndrome of inappropriate secretion of antidiuretic hormone (principal); G93.41 Metabolic encephalopathy; J96.21 Acute and chronic respiratory failure with hypoxia; J96.22 Acute and chronic respiratory failure with hypercapnia; I50.33 Acute on chronic diastolic (congestive) heart failure; C34.91 Malignant neoplasm of unspecified part of right bronchus or lung; C78.7 Secondary malignant neoplasm of liver and intrahepatic bile duct; C78.6 Secondary malignant neoplasm of retroperitoneum and peritoneum; E87.29 Other acidosis; I47.10 Supraventricular tachycardia, unspecified; J44.1 Chronic obstructive pulmonary disease with (acute) exacerbation; I73.9 Peripheral vascular disease, unspecified; R53.1 Weakness; R53.81 Other malaise; Z66 Do not resuscitate; Z88.5 Allergy status to narcotic agent; Z88.2 Allergy status to sulfonamides; Z88.8 Allergy status to other drugs, medicaments and biological substances; E78.5 Hyperlipidemia, unspecified; I11.0 Hypertensive heart disease with heart failure; Z91.040 Latex allergy status; Z90.49 Acquired absence of other specified parts of digestive tract; Z90.710 Acquired absence of both cervix and uterus; Z98.890 Other specified postprocedural states; D50.9 Iron deficiency anemia, unspecified; I48.0 Paroxysmal atrial fibrillation; Z51.5 Encounter for palliative care; E87.6 Hypokalemia
CPT/HCPCS: 36415; 36416; 36600; 51701; 70450; 71045; 74230; 80048; 80306; 80307; 81001; 82140; 82533; 82805; 83735; 83880; 83930; 83935; 84100; 84443; 84484; 84550; 85025; 85027; 85379; 93005; 93010; 94640; 94660; 94760; 96360; 96361; A4217; J0696; J1120; J1650; J1940; J2060; J2272; J2919; J3475; J3480; J7512; J7620

== ENCOUNTER 2024-05-23 14:24 | Inpatient (IN) | payer OTHER ==
[2024-05-23] MEDS ORDERED: Bisacodyl 10 MG SUPP PR PRN (14:35)
[2024-05-23] MEDS ORDERED: Ipratropium/Albuterol 3 ML NEB NEB PRN (14:35)
[2024-05-23] MEDS ORDERED: Haloperidol Lactate 5 MG/ML VIAL SLOW IVP PRN (14:45)
[2024-05-23] MEDS ORDERED: Ondansetron PF 4 MG/2 ML Vial IVP PRN (14:45)
[2024-05-23] MEDS ORDERED: Acetaminophen 650 MG Suppository PR PRN (14:45)
[2024-05-23] MEDS ORDERED: Scopolamine 1 mg/72 hour Patch TOP PRN (14:45)
[2024-05-23 16:01] VITALS: BMI 22.7
[2024-05-23 16:54] VITALS: TEMP 97.5
[2024-05-24] MEDS: Morphine 2 MG/ML VIAL SLOW IVP PRN (00:03)
[2024-05-24] MEDS: Lorazepam 2 MG/ML VIAL SLOW IVP PRN (00:04)
[2024-05-24 07:36] VITALS: BP 134/54
== END 2024-05-24 09:35 | disposition expired | DRG 951 ==
LOC: IMCU/EMU 14:24 → T4-A 16:46
PROVIDERS: ADMIT Internal Medicine; ATTEND Internal Medicine
DX: Z51.5 Encounter for palliative care (principal); G93.41 Metabolic encephalopathy; J96.21 Acute and chronic respiratory failure with hypoxia; J96.22 Acute and chronic respiratory failure with hypercapnia; I50.33 Acute on chronic diastolic (congestive) heart failure; C34.91 Malignant neoplasm of unspecified part of right bronchus or lung; J90 Pleural effusion, not elsewhere classified; J44.1 Chronic obstructive pulmonary disease with (acute) exacerbation; E22.2 Syndrome of inappropriate secretion of antidiuretic hormone; I48.91 Unspecified atrial fibrillation; I11.0 Hypertensive heart disease with heart failure; D64.9 Anemia, unspecified; I48.0 Paroxysmal atrial fibrillation; Z66 Do not resuscitate; R53.81 Other malaise; E78.5 Hyperlipidemia, unspecified; E87.6 Hypokalemia; Z86.711 Personal history of pulmonary embolism; Z79.01 Long term (current) use of anticoagulants
CPT/HCPCS: J2060; J2272